=== PATIENT | female | born 1950 | race Caucasian/White ===

== ENCOUNTER 2018-09-08 10:53 | Emergency (ER) | payer MEDICARE, BC, OTHER ==
[2018-09-08] MEDS: HYDROCODONE/APAP (5/325) TAB PO (13:34)
[2018-09-08] MEDS: ONDANSETRON (ODT) 4 MG TAB ODT (13:34)
== END 2018-09-08 15:14 | disposition home or self-care (01) ==
LOC: E/R 10:53
DX: M54.40 Lumbago with sciatica, unspecified side (principal); E66.01 Morbid (severe) obesity due to excess calories; E11.9 Type 2 diabetes mellitus without complications; I10 Essential (primary) hypertension; Z79.84 Long term (current) use of oral hypoglycemic drugs
CPT/HCPCS: 72131; 99284-25